=== PATIENT | male | born 1960 | race Asian ===

== ENCOUNTER 2022-09-15 13:19 | Inpatient (IN) | payer MEDICARE, OTHER ==
[~2022-09-15] VITALS: Ht 165.1 cm; Wt 61.6 kg
[2022-09-15] MEDS ORDERED: 0.9% SODIUM CHLORIDE 10 ML SYRINGE IVP PRN ×2 (13:45→18:45)
[2022-09-15] MEDS ORDERED: SODIUM CHLORIDE 0.9% 1,000 ML IV ONE (13:45)
[2022-09-15 14:05] LABS: HEMOGLOBIN 12.8 g/dL (13.5-17.5); MEAN CORPUSCULAR HEMOGLOBIN 28.9 pg (26.0-34.0); MEAN CORPUSCULAR HGB CONC 32.8 G/dL (31.0-37.0); MEAN CORPUSCULAR VOLUME 88 fL (80-100); PLATELET COUNT (AUTO) 408 K/uL (150-450); RED BLOOD CELL COUNT(AUTO) 4.43 MIL/uL (4.50-5.90); RED CELL DISTRIBUTION WIDTH 16.1 % (11.5-14.5)
[2022-09-15 14:15] LABS: ANION GAP 19 mmol/L (8-16); CALCIUM, TOTAL 9.5 mg/dL (8.8-10.5); CARBON DIOXIDE 20 mmol/L (22-29); CHLORIDE 100 mmol/L (98-107); GLOMERULAR FILTR. RATE CALC 41 mL/min (>60); GLUCOSE,RANDOM 182 mg/dL (70-110); POTASSIUM 4.6 mmol/L (3.5-5.1); SODIUM SERUM 139 mmol/L (136-145)
[2022-09-15 14:21] LABS: ALANINE AMINOTRANSFERASE 28 U/L (12-78); ALBUMIN 3.6 g/dL (3.4-5.0); ALKALINE PHOSPHATASE 183 U/L (46-116); ASPARTATE AMINOTRANSFERASE 68 U/L (15-37); BILIRUBIN,TOTAL 0.5 mg/dL (0.1-1.0)
[2022-09-15 14:23] LABS: INR 1.3 (0.9-1.1); PROTHROMBIN TIME 13.8 SEC (9.4-11.6)
[2022-09-15 14:36] LABS: LACTIC ACID 8.3 mmol/L (0.4-2.0)
[2022-09-15 14:37] LABS: BAND NEUTROPHILS % (MANUAL) 14 % (0-5); LYMPHOCYTES % (MANUAL) 5 % (22-44); METAMYELOCYTES % 2 % (0-0); SEGMENTED NEUTROPHILS % 79 % (40-70)
[2022-09-15] MEDS ORDERED: SODIUM CHLORIDE 0.9% 1,850 ML IV ONE (14:45)
[2022-09-15] MEDS ORDERED: MIDAZOLAM HCL 2 MG/2 ML VIAL IVP ONE ×2 (14:45→15:15)
[2022-09-15] MEDS ORDERED: ONDANSETRON HCL 4 MG/2 ML VIAL IVP ONE (15:15)
[2022-09-15] MEDS ORDERED: CefTRIAXone 1 GM/DEXTROSE 50 ML IV ONE (15:30)
[2022-09-15] MEDS ORDERED: LORazepam 2 MG/ML VIAL IVP ONE ×2 (16:15→17:00)
[2022-09-15 16:44] LABS: LIPASE 74 U/L (73-393)
[2022-09-15 17:45] LABS: APPEARANCE,URINE CLEAR (CLEAR); BILIRUBIN,URINE NEGATIVE (NEGATIVE); GLUCOSE, URINE (UA) 70-100 mg/dL (NEGATIVE); KETONES,URINE NEGATIVE (NEGATIVE); LEUKOCYTE ESTERASE ,URINE NEGATIVE (NEGATIVE); NITRATE,URINE NEGATIVE (NEGATIVE); OCCULT BLOOD,URINE SMALL (NEGATIVE); PROTEIN,URINE 30-70 mg/dL (NEGATIVE); UROBILINOGEN,URINE <=1.0 mg/dL (<=1.0)
[2022-09-15 17:57] LABS: BACTERIA,URINE None Seen /HPF (None Seen); WBC,URINE None Seen /HPF (0-5)
[2022-09-15 18:00] LABS: TRANSITIONAL EPI CELLS,URINE Few /LPF (None Seen)
[2022-09-15] MEDS ORDERED: CLINDAMYCIN 600 MG/D5% WATER 50 ML IV ONE (18:45)
[2022-09-15] MEDS: RINGERS SOLUTION,LACTATED 1,000 ML IV SCH (19:00)
[2022-09-15] MEDS: PIPERACILLIN/TAZO 3.375 GM/D5W 50 ML IV SCH (19:00)
[2022-09-15 19:28] LABS: COVID AG,FIA SOURCE NASAL SWAB
[2022-09-15] MEDS ORDERED: RINGERS SOLUTION,LACTATED 1,000 ML IV ONE (19:30)
[2022-09-15 19:38] LABS: INFLUENZA TYPE A NEGATIVE FOR TYPE A (NEGATIVE); INFLUENZA TYPE B NEGATIVE FOR TYPE B (NEGATIVE)
[2022-09-15] MEDS ORDERED: VANCOMYCIN 1GM/WATER(PEG/NADA) 200 ML IV ONE (20:00)
[2022-09-15 21:06] LABS: AMPHET/METH SCREEN,URINE NEGATIVE (NEGATIVE); BARBITURATE SCREEN, URINE NEGATIVE (NEGATIVE); BENZODIAZEPINES SCREEN,URINE POSITIVE (NEGATIVE); CANNABINOID SCREEN,URINE NEGATIVE (NEGATIVE); COCAINE SCREEN,URINE NEGATIVE (NEGATIVE); METHADONE SCREEN, URINE NEGATIVE (NEGATIVE); OPIATE SCREEN,URINE NEGATIVE (NEGATIVE); PHENCYCLIDINE SCREEN,URINE NEGATIVE (NEGATIVE)
[2022-09-15 21:09] LABS: THYROID STIMULATING HORMONE 0.38 uIU/mL (0.36-3.74)
[2022-09-15 21:26] LABS: HEMATOCRIT 37.6 % (41-53); HEMOGLOBIN 12.3 g/dL (13.5-17.5); MEAN CORPUSCULAR HEMOGLOBIN 28.5 pg (26.0-34.0); MEAN CORPUSCULAR HGB CONC 32.6 G/dL (31.0-37.0); MEAN CORPUSCULAR VOLUME 88 fL (80-100); PLATELET COUNT (AUTO) 320 K/uL (150-450); RED CELL DISTRIBUTION WIDTH 15.7 % (11.5-14.5)
[2022-09-15 21:34] LABS: ANION GAP 15 mmol/L (8-16); CALCIUM, TOTAL 9.2 mg/dL (8.8-10.5); CARBON DIOXIDE 23 mmol/L (22-29); CHLORIDE 108 mmol/L (98-107); CREATININE 1.41 mg/dL (0.60-1.30); GLOMERULAR FILTR. RATE CALC 51 mL/min (>60); GLUCOSE,RANDOM 157 mg/dL (70-110); SODIUM SERUM 146 mmol/L (136-145)
[2022-09-15] MEDS ORDERED: [UNRECOGNIZED DRUG - OTHER] BU (21:35)
[2022-09-15] MEDS ORDERED: [UNRECOGNIZED DRUG - REMARK] BC (21:35)
[2022-09-15] MEDS ORDERED: 5fu DT (21:35)
[2022-09-15] MEDS ORDERED: INSULIN LISPRO 100 UNITS/ML SQ PRN (21:45)
[2022-09-15] MEDS ORDERED: DEXTROSE 50%-WATER 25 GM/50 ML SYRINGE IVP PRN (21:45)
[2022-09-15 22:08] LABS: LACTIC ACID 3.8 mmol/L (0.4-2.0)
[2022-09-15 22:16] LABS: ALANINE AMINOTRANSFERASE 26 U/L (12-78); ALBUMIN 3.3 g/dL (3.4-5.0); ALKALINE PHOSPHATASE 158 U/L (46-116); ASPARTATE AMINOTRANSFERASE 54 U/L (15-37); BILIRUBIN,TOTAL 0.4 mg/dL (0.1-1.0); HCG,QUANTITATIVE < 1 mIU/mL (0-6); LACTATE DEHYDROGENASE 798 U/L (85-227); TOTAL PROTEIN, SERUM 7.3 g/dL (6.4-8.2)
[2022-09-16 00:03] LABS: BAND NEUTROPHILS % (MANUAL) 7 % (0-5); LYMPHOCYTES % (MANUAL) 7 % (22-44); MONOCYTES % (MANUAL) 4 % (2-9); SEGMENTED NEUTROPHILS % 82 % (40-70)
[2022-09-16 01:55] LABS: URIC ACID 8.8 mg/dL (2.6-7.2)
[2022-09-16 02:35] VITALS: BP 159/90
[2022-09-16] MEDS: PIPERACILLIN/TAZO 3.375 GM/D5W 50 ML IV SCH ×4 (03:24→20:26)
[2022-09-16] MEDS: RINGERS SOLUTION,LACTATED 1,000 ML IV SCH ×3 (04:04→23:00)
[2022-09-16 04:52] VITALS: BP 158/91
[2022-09-16 05:26] LABS: SODIUM,URINE RANDOM 138 mmol/l (20-110)
[2022-09-16 05:32] LABS: CREATININE,URINE RANDOM < 5.0 mg/dL (30.0-125.0)
[2022-09-16 06:52] LABS: CALCIUM, TOTAL 8.8 mg/dL (8.8-10.5); CREATININE 1.26 mg/dL (0.60-1.30); MAGNESIUM 1.8 mg/dL (1.80-2.40); POTASSIUM 3.6 mmol/L (3.5-5.1)
[2022-09-16 06:58] LABS: HEMATOCRIT 35.2 % (41-53); HEMOGLOBIN 11.7 g/dL (13.5-17.5); MEAN CORPUSCULAR HGB CONC 33.3 G/dL (31.0-37.0); MEAN CORPUSCULAR VOLUME 87 fL (80-100); PLATELET COUNT (AUTO) 257 K/uL (150-450); RED BLOOD CELL COUNT(AUTO) 4.05 MIL/uL (4.50-5.90); RED CELL DISTRIBUTION WIDTH 15.9 % (11.5-14.5)
[2022-09-16 07:01] LABS: GLUCOMETER DEV NAME(LOC) 5N.2C; GLUCOSE,POINT OF CARE 123 MG/DL (70-110)
[2022-09-16 07:30] VITALS: BP 161/92
[2022-09-16] MEDS ORDERED: VANCOMYCIN 1GM/WATER(PEG/NADA) 200 ML IV SCH (08:00)
[2022-09-16 08:05] LABS: BAND NEUTROPHILS % (MANUAL) 15 % (0-5); LYMPHOCYTES % (MANUAL) 11 % (22-44); MONOCYTES % (MANUAL) 1 % (2-9); SEGMENTED NEUTROPHILS % 73 % (40-70)
[2022-09-16] MEDS ORDERED: DEXA4 PO (11:03)
[2022-09-16] MEDS ORDERED: METF-1211 PO (11:03)
[2022-09-16] MEDS ORDERED: MULT-663 PO (11:03)
[2022-09-16] MEDS ORDERED: ASPI-1450 PO (11:03)
[2022-09-16] MEDS ORDERED: LOSA-382 PO (11:03)
[2022-09-16] MEDS ORDERED: AMLO-258 PO (11:03)
[2022-09-16] MEDS ORDERED: ATOR40TA28 PO (11:03)
[2022-09-16] MEDS ORDERED: CARV6 PO (11:03)
[2022-09-16] MEDS ORDERED: ONDA-104 PO (11:03)
[2022-09-16] MEDS ORDERED: DEXTROSE 50%-WATER 25 GM/50 ML SYRINGE IVP PRN (11:45)
[2022-09-16 12:00] VITALS: BP 157/90
[2022-09-16 12:16] LABS: GLUCOMETER DEV NAME(LOC) 5S.2C; GLUCOSE,POINT OF CARE 126 MG/DL (70-110)
[2022-09-16] MEDS: LACTULOSE 20 GM/30 ML SOLUTION UDCUP PO SCH (12:49)
[2022-09-16] MEDS: TAMSULOSIN HCL 0.4 MG CAPSULE PO SCH (12:49)
[2022-09-16 16:00] VITALS: BP 153/81
[2022-09-16 17:31] LABS: GLUCOMETER DEV NAME(LOC) 5S.2C; GLUCOSE,POINT OF CARE 132 MG/DL (70-110)
[2022-09-16] MEDS: VANCOMYCIN HCL 750 MG in DEXTROSE 5%-WATER 250 ML IV SCH (19:54)
[2022-09-16 20:12] VITALS: BP 155/84
[2022-09-16] MEDS: BISACODYL 10 MG RECTAL RECTAL SUPPOSITORY PR SCH (20:26)
[2022-09-16] MEDS: DEXAMETHASONE 4 MG TABLET PO SCH (20:26)
[2022-09-16] MEDS: AmLODIPine BESYLATE 10 MG TABLET PO SCH (20:27)
[2022-09-16] MEDS: CARVEDILOL 6.25 MG TABLET PO SCH (20:27)
[2022-09-16] MEDS: ATORVASTATIN CALCIUM 40 MG TABLET PO SCH (20:27)
[2022-09-16] MEDS ORDERED: CARVEDILOL 6.25 MG TABLET PO SCH (21:00)
[2022-09-16] MEDS: INSULIN LISPRO 100 UNITS/ML SQ PRN (21:37)
[2022-09-16 22:36] LABS: GLUCOMETER DEV NAME(LOC) 5S.2C; GLUCOSE,POINT OF CARE 199 MG/DL (70-110)
[2022-09-17 02:02] VITALS: BP 130/79
[2022-09-17] MEDS: PIPERACILLIN/TAZO 3.375 GM/D5W 50 ML IV SCH ×4 (02:19→21:26)
[2022-09-17] MEDS: RINGERS SOLUTION,LACTATED 1,000 ML IV SCH ×2 (03:00→09:14)
[2022-09-17] MEDS: INSULIN LISPRO 100 UNITS/ML SQ PRN ×3 (05:54→21:32)
[2022-09-17 06:40] VITALS: BP 150/83
[2022-09-17 08:00] LABS: ANION GAP 11 mmol/L (8-16); CALCIUM, TOTAL 8.6 mg/dL (8.8-10.5); CARBON DIOXIDE 22 mmol/L (22-29); CHLORIDE 104 mmol/L (98-107); CREATININE 1.14 mg/dL (0.60-1.30); GLOMERULAR FILTR. RATE CALC > 60 mL/min (>60); GLUCOSE,RANDOM 174 mg/dL (70-110); POTASSIUM 3.6 mmol/L (3.5-5.1); SODIUM SERUM 137 mmol/L (136-145)
[2022-09-17 08:32] VITALS: BP 165/80
[2022-09-17] MEDS ORDERED: ASPIRIN 81 MG CHEWABLE TABLET PO SCH (09:00)
[2022-09-17] MEDS: BISACODYL 10 MG RECTAL RECTAL SUPPOSITORY PR SCH ×2 (09:00→21:00)
[2022-09-17] MEDS: LACTULOSE 20 GM/30 ML SOLUTION UDCUP PO SCH (09:07)
[2022-09-17] MEDS: CARVEDILOL 6.25 MG TABLET PO SCH (09:07)
[2022-09-17] MEDS: TAMSULOSIN HCL 0.4 MG CAPSULE PO SCH (09:07)
[2022-09-17] MEDS: DEXAMETHASONE 4 MG TABLET PO SCH ×2 (09:07→21:18)
[2022-09-17] MEDS: VANCOMYCIN HCL 750 MG in DEXTROSE 5%-WATER 250 ML IV SCH ×2 (09:58→20:04)
[2022-09-17 13:41] LABS: GLUCOMETER DEV NAME(LOC) 5N.2C; GLUCOSE,POINT OF CARE 170 MG/DL (70-110)
[2022-09-17 13:41] LABS: GLUCOMETER DEV NAME(LOC) 5N.2C; GLUCOSE,POINT OF CARE 175 MG/DL (70-110)
[2022-09-17 20:16] VITALS: BP 162/90
[2022-09-17] MEDS ORDERED: CARVEDILOL 12.5 MG TABLET PO SCH (21:00)
[2022-09-17] MEDS: AmLODIPine BESYLATE 10 MG TABLET PO SCH (21:18)
[2022-09-17] MEDS: ATORVASTATIN CALCIUM 40 MG TABLET PO SCH (21:18)
[2022-09-17 23:57] VITALS: BP 130/71
[2022-09-18] MEDS ORDERED: ASPI-1227 PO (00:35)
[2022-09-18] MEDS ORDERED: ASPI-1450 PO (00:35)
[2022-09-18] MEDS ORDERED: ATOR40TA71 PO (00:36)
[2022-09-18] MEDS ORDERED: ZOSY3375FZ IV (00:46)
[2022-09-18] MEDS ORDERED: TAMS-13 PO (00:46)
[2022-09-18] MEDS ORDERED: VANC250C6 IV (00:47)
[2022-09-18 03:11] LABS: GLUCOMETER DEV NAME(LOC) 5N.2C; GLUCOSE,POINT OF CARE 194 MG/DL (70-110)
[2022-09-18 03:11] LABS: GLUCOMETER DEV NAME(LOC) 5N.2C; GLUCOSE,POINT OF CARE 135 MG/DL (70-110)
[2022-09-18] MEDS ORDERED: LOSARTAN POTASSIUM 25 MG TABLET PO SCH (09:00)
== END 2022-09-18 00:30 | disposition short-term general hospital (02) | DRG 871 ==
LOC: EMS 13:33 → 5S 18:25
PROVIDERS: ADMIT Internal Medicine; ATTEND Internal Medicine
DX: A41.9 Sepsis, unspecified organism (principal); G93.41 Metabolic encephalopathy; N17.0 Acute kidney failure with tubular necrosis; D68.9 Coagulation defect, unspecified; E87.20 Acidosis, unspecified; Z20.822 Contact with and (suspected) exposure to COVID-19; I10 Essential (primary) hypertension; E11.9 Type 2 diabetes mellitus without complications; K52.89 Other specified noninfective gastroenteritis and colitis; K56.41 Fecal impaction; I25.10 Atherosclerotic heart disease of native coronary artery without angina pectoris; K57.30 Diverticulosis of large intestine without perforation or abscess without bleeding; R65.20 Severe sepsis without septic shock; K21.9 Gastro-esophageal reflux disease without esophagitis; D64.9 Anemia, unspecified; Z85.028 Personal history of other malignant neoplasm of stomach; Z95.1 Presence of aortocoronary bypass graft; Z98.84 Bariatric surgery status; Z92.21 Personal history of antineoplastic chemotherapy; Z79.899 Other long term (current) drug therapy; Z79.84 Long term (current) use of oral hypoglycemic drugs; Z79.82 Long term (current) use of aspirin
CPT/HCPCS: 51702; 70450; 71045; 72125; 74176; 80048; 80053; 80307; 81001; 82570; 82962; 83605; 83615; 83690; 83735; 84145; 84300; 84443; 84484; 84550; 84702; 85025; 85610; 85730; 87040; 87804; 93005; 93306; 99291; G0480; J0696; J2060; J2250; J2405; J2543; J3370; J3490; J7030; J7060; J7120; J8540; Q9967; 36415-L1; 36415-TC